=== PATIENT | female | born 2000 | race Hispanic/Latino ===

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

== ENCOUNTER 2022-02-06 18:33 | Emergency (ER) | payer OTHER ==
[2022-02-06] MEDS ORDERED: Ondansetron ODT 4 MG TAB ONE (19:09)
[2022-02-06] MEDS ORDERED: Acetaminophen 500 MG TAB ONE (19:35)
[2022-02-06 20:00] LABS: SARS-CoV-2 NAA Rapid Test Not Detected (NotDetected)
== END 2022-02-06 20:15 | disposition home or self-care (01) ==
LOC: ERS 18:33
DX: J10.1 Influenza due to other identified influenza virus with other respiratory manifestations (principal)
CPT/HCPCS: 99283; Q0162